=== PATIENT | female | born 1990 | race Caucasian/White ===

== ENCOUNTER 2017-07-06 21:32 | Inpatient (IN) | payer MEDICAID ==
[~2017-07-06] VITALS: Ht 175.3 cm; Wt 128.0 kg
[~2017-07-06 21:32] MED LIST: IBUP600 PO; OXYC1SOL5 PO; PREN0.01 PO
--- NOTE | 2017-07-06 22:03 | PD ---
HPI Chief Complaint Decreased FM Travel History International Travel<30 Days: No Contact w/Intl Traveler<30Days: No Known Affected Area: No History of Present Illness HPI 27y/o , IUP at 39.1 PNC complicated by maternal obesity, anxiety disorder Patient presents reporting decreased movements today. She felt some small movements this morning, but reports she hasn't felt movements since 4:30pm. She reports she ate a peanut butter and jelly sandwich and drank a glass of juice without an improvement in movements. She denies any LOF or VB. She denies any painful contractions but reports some mild lower back pain. She does report some occasional mild headaches and visual spots, although none at this time. She has felt the baby move since arriving Weeks Gestation: 39 Para: 2 : 4 History Past Medical History Narrative Medical obesity Obstetric History Obstetric History SAB x1 FT x2 Past Surgical History Narrative Surgical Cholecystectomy Family History Narrative Family History DM, HTN Social History Alcohol Use: No Tobacco Use: No Substance Abuse: No Allergies-Medications (Allergen,Severity, Reaction): Coded Allergies: No Known Allergies (Unverified , 05/23/13) Home Meds Active Scripts Oxycodone W/ Acetaminophen (Oxycodone/Acetaminophen 5-325 mg/5Ml) 1 Tab Tab, 2 TAB PO Q4H Y for PAIN SCALE 5 TO 10, #30 TAB Prov:Alberta Lao MD 01/12/15 Ibuprofen (Motrin 600 Mg Tab) 600 Mg Tab, 600 MG PO Q6H Y for CRAMPING, #30 TAB Prov:Alberta Lao MD 01/12/15 Reported Medications Multivit/Min/Fol Ac/Iron/Pren ( Vit ( Plus)) Tab, 1 TAB PO DAILY, TAB 04/22/13 Review of Systems Except as stated in HPI: all other systems reviewed are Neg General / Constitutional: No: Fever, Weight Gain, Weight Loss, Chills, Other Eyes: No: Diploplia, Blurred Vision, Visual changes, Pain, Photophobia, Other HENT: No: Headaches, Vertigo, Dental Difficulties, Lightheadedness, Other Cardiovascular: No: Irregular Rhythm, Chest Pain or Discomfort, Palpitations, Tachycardia, Syncope, Varicosities, Edema, Cyanosis, Other Respiratory: No: Cough, Short of Breath, Wheezing, Other Gastrointestinal: No: Nausea, Vomiting, Diarrhea, Abdominal Pain, Hematemesis, Hematochezia, Constipation, Changes in Bowel Habits, Indigestion, Loss of Appetite, Other Genitourinary: No: Urgency, Frequency, Dysuria, Nocturia, Hematuria, Decreased Urinary Output, Oliguria, Hesitancy, Dribbling, Incontinence, Pelvic Pain, Dyspareunia, Discharge, Menorrhagia, Vaginal Bleeding, Other Musculoskeletal: No: Limited ROM, Weakness, Cramping, Edema, Pain, Other Skin: No Rash, No Itching, No Dryness, No Lumps, No Change in Pigmentation, No Change in Nails, No Alopecia, No Lesions, No Breast Lumps, No Breast Tenderness , No Breast Swelling, No Other Neurologic: No: Weakness, Dizziness, Syncope, Focal Abnormalities, Coordination Problem, Headache, Slurred Speech, Seizures, Other Psychiatric: No: Anxiety, Depression, Suicidal Ideations, Disorder of Thought, Mood Disorder, Substance Abuse, Homicidal Ideation, Other Endocrine: No: Heat Intolerance, Cold Intolerance, Polydipsia, Polyuria, Other Hematologic/Lymphatic: No Easy Bruising, No Lymph Node Enlargement, No Other Physical Exam Narrative GENERAL: Well-nourished, well-developed patient. SKIN: Warm and dry. HEAD: Normocephalic and atraumatic. EYES: No scleral icterus. No injection or drainage. ENT: No nasal drainage noted. Mucous membranes pink. Airway patent. NECK: Supple, trachea midline. No JVD. CARDIOVASCULAR: Regular rate and rhythm without murmurs, gallops, or rubs. RESPIRATORY: Breath sounds equal bilaterally. No accessory muscle use. BREASTS: Deferred ABDOMEN/GI: Abdomen soft, non-tender, bowel sounds present, no rebound, no guarding Gravid GENITOURINARY: External Genitalia: intact and normal in appearance. Normal BUS, no cervical or vaginal masses noted, physiologic discharge. Grossly normal rugae. SVE FHT's: EXTREMITIES: No cyanosis or edema. BACK: Nontender without obvious deformity. No CVA tenderness. NEUROLOGICAL: Awake and alert. Motor and sensory grossly within normal limits. Five out of 5 muscle strength in all muscle groups. Normal speech. Psychiatric: grossly normal memory and affect Musculoskeletal: grossly normal ROM, gait, muscle strength MDM Plan A/P: 1. IUP at 39.1 2. Decreased FM: Patient has felt movement since arriving. heart rate with a running tachycardia which has resolved. 3. Contractions at term: Patient reports mild contractions with 3 cm dilation, will augment due to gestational hypertension at term 4. Obesity 5. well-being: Overall reassuring testing 6. Gestational hypertension: We'll send preeclampsia labs. Will admit for gestational hypertension with labile blood pressures at term and augment current contractions with oxytocin. Plantar cysts discussed with Dr. Lao who was in agreement with admission for gestational hypertension with labile blood pressures at term 7. GBS Rox Nicholas MD Jul 06, 2017 22:03
--- NOTE | 2017-07-06 22:05 | PD ---
History of Present Illness History of Present Illness NST report Indications: IUP at 39w, decreased movement, elevated BP NST: Baseline 150s with moderate correction variability, no decels, good accels F/U: as clinically indicated Final diagnosis: IUP at 39w, gestational hypertension Rox Skelton MD Jul 06, 2017 22:05
[2017-07-07] VITALS (73 sets, daily range): BP systolic 87–167; BP diastolic 59–87; PULSE 55–105; RESP 16–18; TEMP 97.4–98.7
[2017-07-07] MEDS ORDERED: LACTATED RINGER'S 1000 ML INJ 1,000 ML IV PRN (00:06)
[2017-07-07] MEDS ORDERED: LACTATED RINGER'S 1000 ML INJ 1,000 ML IV SCH (00:06)
[2017-07-07] MEDS ORDERED: LIDOCAINE HCL 1% 50 ML VIAL INFIL PRN (00:15)
[2017-07-07] MEDS ORDERED: CITRIC ACID-SODIUM CITRATE LIQ 30 ML UDC PO SCH (00:15)
[2017-07-07] MEDS ORDERED: OXYTOCIN 30 UNITS-500ML PREMIX 500 ML IV ONE (00:15)
[2017-07-07] MEDS ORDERED: SODIUM CHLORID 0.9% 500 ML INJ 500 ML IV PRN (00:15)
[2017-07-07] MEDS ORDERED: MINERAL OIL 10 ML VIAL TOPICAL PRN (00:15)
[2017-07-07] MEDS ORDERED: LIDOCAINE HCL 1% 50 ML VIAL I-DERMAL PRN (00:15)
[2017-07-07] MEDS ORDERED: SODIUM CHLOR 0.9% 1000 ML INJ 1,000 ML IV PRN (00:26)
[2017-07-07 01:27] LABS: AUTOMATED NEUTROPHIL # 7.4 TH/MM3 (1.8-7.7); BASOPHIL % 0.4 % (0.0-2.0); EOSINOPHIL # 0.1 TH/MM3 (0-0.4); EOSINOPHIL % 0.7 % (0.0-4.0); HEMO FLAGS DIFF FINAL; LYMPH % 23.6 % (9.0-44.0); LYMPHOCYTE # 2.5 TH/MM3 (1.0-4.8); MEAN CELL VOLUME 83.2 FL (80.0-100.0); MEAN CORPUSCULAR HEMOGLOBIN 28.4 PG (27.0-34.0); MEAN CORPUSCULAR HGB CONC 34.2 % (32.0-36.0); NEUT % 69.3 % (16.0-70.0); PLATELET COUNT 166 TH/MM3 (150-450); RED BLOOD COUNT 4.57 MIL/MM3 (4.00-5.30); RED CELL DISTRIBUTION WIDTH 13.8 % (11.6-17.2); WHITE BLOOD COUNT 10.6 TH/MM3 (4.0-11.0)
[2017-07-07 01:29] LABS: BLOOD, URINE NEG (NEG); COMMENT (UR) CULT NOT INDICATED; CULTURE IF INDICATED CULT NOT INDICATED; GLUCOSE,URINE NEG (NEG); KETONE, URINE NEG (NEG); NITRITE,URINE NEG (NEG); SQUAMOUS EPITHELIAL CELL URINE <1 /hpf (0-5); URINE COLOR COLORLESS (YELLW/STRAW)
[2017-07-07] MEDS ORDERED: OXYTOCIN 30 UNITS-500ML PREMIX 500 ML IV SCH ×2 (01:30→10:45)
[2017-07-07 01:47] LABS: ALKALINE PHOSPHATASE 147 U/L (45-117); TOTAL BILIRUBIN ADULT 0.3 MG/DL (0.2-1.0)
[2017-07-07 01:56] LABS: ALT (GPT) 17 U/L (10-53); ANION GAP 9 MEQ/L (5-15); AST (GOT) 16 U/L (15-37); BICARBONATE 21.3 MEQ/L (21.0-32.0); BLOOD UREA NITROGEN 4 MG/DL (7-18); CHLORIDE 108 MEQ/L (98-107); GLOMERULAR FILTRATION RATE 177 ML/MIN (>89); SODIUM (NA) 138 MEQ/L (136-145); URIC ACID 3.1 MG/DL (2.6-6.0)
[2017-07-07] MEDS ORDERED: fentaNYL 2MCG-BUPIV 0.125% INJ 100 ML ONE (08:43)
--- NOTE | 2017-07-07 10:24 | HHI.PR ---
Subjective Remarks [facility] Called to bedside by nurse for standby services. Overall reassuring heart tones were noted. Patient was encouraged to [place] her contractions but was making spontaneous maternal expulsive efforts. I was gowned and readily available as the patient progressed to complete/complete/+[address] Whatley presented to the bedside and assumed care for the patient at this time. Objective Vital Signs Date Time Temp Pulse Resp B/P (MAP) Pulse Ox O2 Delivery O2 Flow Rate FiO2 07/07/17 10:01 66 139/66 (90) 07/07/17 10:00 64 07/07/17 09:56 70 128/72 (90) 07/07/17 09:55 66 07/07/17 09:50 60 130/67 (88) 07/07/17 09:50 55 07/07/17 09:46 63 118/67 (84) 07/07/17 09:45 58 07/07/17 09:40 63 123/61 (81) 07/07/17 09:40 58 07/07/17 09:36 57 122/60 (80) 07/07/17 09:35 62 07/07/17 09:31 75 132/59 (83) 07/07/17 09:30 69 07/07/17 09:30 18 07/07/17 09:28 62 131/66 (87) 07/07/17 09:26 92 87/67 (74) 07/07/17 09:25 73 07/07/17 09:20 73 07/07/17 09:20 82 137/77 (97) 07/07/17 09:16 69 131/77 (95) 07/07/17 09:15 65 07/07/17 09:10 63 07/07/17 09:10 68 144/83 (103) 07/07/17 09:05 71 141/78 (99) 07/07/17 09:05 74 07/07/17 09:04 79 144/86 (105) 07/07/17 08:35 81 07/07/17 08:30 98.7 07/07/17 08:30 85 07/07/17 08:25 82 07/07/17 08:20 79 07/07/17 08:15 72 07/07/17 08:12 18 07/07/17 08:00 75 140/83 (102) 07/07/17 07:30 58 132/68 (89) 07/07/17 07:12 65 131/79 (96) 07/07/17 07:10 97.8 18 07/07/17 07:01 72 133/71 (91) 07/07/17 06:30 18 07/07/17 06:30 62 135/75 (95) 07/07/17 06:00 57 131/72 (91) 07/07/17 06:00 18 07/07/17 05:45 18 07/07/17 05:30 64 18 131/72 (91) 07/07/17 05:15 18 07/07/17 05:01 72 126/62 (83) 07/07/17 05:00 18 07/07/17 04:45 18 07/07/17 04:31 70 134/69 (90) 07/07/17 04:30 18 07/07/17 04:15 18 07/07/17 04:03 71 142/79 (100) 07/07/17 04:00 18 07/07/17 03:30 18 07/07/17 03:19 71 144/76 (98) 07/07/17 03:00 18 07/07/17 02:39 18 07/07/17 02:38 70 150/76 (100) 07/07/17 02:30 18 07/07/17 02:00 18 07/07/17 01:59 61 139/66 (90) 07/07/17 01:30 18 07/07/17 01:00 18 07/07/17 00:31 79 158/87 (110) 07/07/17 00:30 16 07/07/17 00:16 75 167/78 (107) 07/07/17 00:15 16 07/07/17 00:01 79 158/76 (103) Result Diagram: 07/07/17 0100 07/07/17 010 Rox Skelton MD Jul 07, 2017 10:24
--- NOTE | 2017-07-07 10:32 | PD.OB.DELI ---
Weeks gestation: 39 Gest age assessed date: Jul 06, 2017 Gest age assessed time: 21:30 Pt started active labor?: Yes Active labor start date: Jul 06, 2017 Active labor start time: 21:30 Medical induction of labor?: Yes Medical induction start date: Jul 06, 2017 Medical induction start time: 21:30 Artificial rupture of membrane: Yes Artificial ROM date: Jul 07, 2017 Artifical ROM time: 08:30 Anesthesia: Epidural Episiotomy: None Vaginal Delivery: Normal, Spontaneous Presentation: Occiput anterior Nuchal Cord: None, x1 (loose) Delayed cord clamping (45 sec): Yes : Female, Single Delivery date: Jul 07, 2017 Delivery time: 10:19 One Minute : 9 Five Minute : 9 Placenta: Spontaneous delivery, Intact, 3 vessel cord Laceration: No lacerations Estimated blood loss: 200 Eduardo Whatley MD Jul 07, 2017 10:32
[2017-07-07] MEDS ORDERED: oxyCODONE/ACETAMINOPHEN 5 MG/325 MG TAB PO PRN ×2 (10:45)
[2017-07-07] MEDS ORDERED: ALUMINUM/MAGNESIUM/SIMETH 30 ML CUP PO PRN (10:45)
[2017-07-07] MEDS ORDERED: ZOLPIDEM TARTRATE 5 MG TAB PO PRN (10:45)
[2017-07-07] MEDS ORDERED: WITCH HAZEL 50%/GLYCERIN 12.5% 40 PAD JAR TOPICAL PRN (10:45)
[2017-07-07] MEDS ORDERED: BENZOCAINE 20% TOPICAL SPRAY 60 ML CAN TOPICAL PRN (10:45)
[2017-07-07] MEDS ORDERED: ONDANSETRON ODT 4 MG TAB PO PRN (10:45)
[2017-07-07] MEDS ORDERED: SODIUM CHLORIDE 0.9% FLUSH 10 ML FLUSH IV FLUSH PRN (10:45)
[2017-07-07] MEDS ORDERED: ACETAMINOPHEN 325 MG TAB PO PRN (10:45)
[2017-07-07] MEDS: IBUPROFEN 800 MG TAB PO PRN (15:18)
[2017-07-07] MEDS ORDERED: MEASLES, MUMPS, RUBELLA VACCINE 0.5 ML VIAL SQ ONE (16:00)
[2017-07-07] MEDS ORDERED: DIPHTH/TETANUS/ACEL PERTUSSIS (BOOSTER) 0.5 ML VIAL/PFS IM ONE (16:00)
[2017-07-07] MEDS: DOCUSATE SODIUM 50 MG/SENNA 8.6 MG TAB PO PRN (19:39)
[2017-07-07] MEDS ORDERED: SODIUM CHLORIDE 0.9% FLUSH 10 ML FLUSH IV FLUSH SCH (21:00)
[2017-07-08 02:45] VITALS: BP 135/73; PULSE 64; RESP 18; TEMP 98.6
[2017-07-08] MEDS ORDERED: IBUP1TAB7 PO (09:09)
--- NOTE | 2017-07-08 09:13 | HHI.DS ---
Admission Date Jul 06, 2017 at 23:53 Discharge Date: Jul 08, 2017 Admitting Diagnosis gestational hypertension decreased movement early labor Diagnosis: Delivery Date: Jul 07, 2017 Vaginal Delivery: Normal Infant: Female, Single Brief History 27y/o , IUP at 39.1 PNC complicated by maternal obesity, anxiety disorder Patient presents reporting decreased movements today. She felt some small movements this morning, but reports she hasn't felt movements since 4:30pm. She reports she ate a peanut butter and jelly sandwich and drank a glass of juice without an improvement in movements. She denies any LOF or VB. She denies any painful contractions but reports some mild lower back pain. She does report some occasional mild headaches and visual spots, although none at this time. She has felt the baby move since arriving Hospital Course pt was admitted with tn and labor was augmented. she had an uncomplicated . on ppd 1 pt was voiding, passing gas, and requesting d/c home. bps normalized after delivery without medications. Pt Condition on Discharge: Stable Discharge Disposition: Discharge Home Discharge Instructions Diet Instructions: As Tolerated, No Restrictions Additional Diet Instructions: Drink at least 8 - 16 oz bottles of water a day Activities You Can Perform: Shower Only-No Bath, Sitz Bath Activities to Avoid: Lifting/Bending, Sexual Activity Additional Activity Instruc.: No driving until off pain medications Do not lift anything heavier than your baby in an infant carrier Alberta Lao MD Jul 08, 2017 09:12
[2017-07-08] MEDS: DOCUSATE SODIUM 50 MG/SENNA 8.6 MG TAB PO PRN (09:27)
[2017-07-08 09:30] VITALS: BP 121/79; PULSE 61; RESP 18; TEMP 98.5
[2017-07-08] MEDS: IBUPROFEN 800 MG TAB PO PRN (09:43)
== END 2017-07-08 14:15 | disposition home or self-care (01) | DRG 775 ==
LOC: HOBED 21:32 → H2EB 23:53 → H2EA 07-07 00:39 → H1EA 07-07 13:15
PROVIDERS: ADMIT Obstetrics & Gynecology; ATTEND Obstetrics & Gynecology
PROC: 10E0XZZ Delivery of Products of Conception, External Approach (ICD-10-PCS; principal; 2017-07-06)
PROC: 3E0R3BZ Introduction of Anesthetic Agent into Spinal Canal, Percutaneous Approach (ICD-10-PCS; 2017-07-06)
PROC: 00HU33Z Insertion of Infusion Device into Spinal Canal, Percutaneous Approach (ICD-10-PCS; 2017-07-06)
DX: O13.4 Gestational [pregnancy-induced] hypertension without significant proteinuria, complicating childbirth (principal); Z68.41 Body mass index [BMI] 40.0-44.9, adult; E66.9 Obesity, unspecified; Z37.0 Single live birth; O99.214 Obesity complicating childbirth; O36.8130 Decreased fetal movements, third trimester, not applicable or unspecified; Z3A.39 39 weeks gestation of pregnancy; O75.5 Delayed delivery after artificial rupture of membranes
CPT/HCPCS: 59025; 80053; 80307; 81001; 84550; 85025; 85461; 86850; 86900; 86901; 87641; 90384; 90707; 90715; J2590; J2790; J7120